=== PATIENT | female | born 1990 | race Caucasian/White ===

== ENCOUNTER 2018-01-22 10:37 | Emergency (ER) | payer SELFPAY ==
[2018-01-22 10:38] VITALS: BP 127/69; PULSE 94; RESP 14; TEMP 36.6; O2SAT 99; BMI 21.6
--- NOTE | 2018-01-22 10:48 | US_ITS ---
STUDY: FIRST TRIMESTER OBSTETRICAL ULTRASOUND REASON FOR EXAM: Female, 27 years old. Bleeding. LMP: November 18, 2017. TECHNIQUE: Transabdominal and Transvaginal TECHNICAL QUALITY: Adequate. PRIOR ULTRASOUND: None. FINDINGS: There is visualization of a single gestational sac in a normal intrauterine position. The mean sac diameter (MSD) measures 4.09 cm, indicating an estimated gestational age (EGA) of 9 weeks, 5 days. The gestational sac shape is within normal limits. There is a visualized yolk sac. The yolk sac measures 4.9 mm. The placenta is non-visualized. Small subchorionic hematoma measuring 2.1 cm x 2.1 sinus by 1.2 cm. There is visualization of a live embryo. The crown-rump length (CRL) measures 2.88 cm, indicating an estimated gestational age (EGA) of 9 weeks, 6 days. There is demonstrated cardiac activity with a heart rate of 149 bpm. The estimated gestation age (EGA) by LMP is 9 weeks, 2 days. The estimated date of delivery (JOHNNY) by LMP is August 25, 2018. The estimated gestation age (EGA) by US is 9 weeks, 6 days. The estimated date of delivery (JOHNNY) by US is August 21, 2018. The uterus measures 10.4 cm x 6.7 cm x 5.6 cm. There is no demonstrated uterine fibroid. The cervix is closed. The right ovary measures 2.4 cm x 1.9 cm x 1.4 cm. There is no right ovarian cyst. There is no visualized right adnexal mass or complex lesion. The left ovary measures 4.1 cm x 3.8 cm x 2.2 cm.. There is a 2.3 cm x 2.2 cm x 2.2 cm cyst. There is no visualized left adnexal mass or complex lesion. There is no fluid in the cul de sac. US/Transvaginal w/Preg US IMPRESSION: Single live intrauterine gestation with a mean gestational age of 9 weeks and 6 days. Small subchorionic hematoma. Left ovarian cyst. Electronically Signed: Hardik Klein MD at 13:03 EDT Tel [phone], Service support ,
--- NOTE | 2018-01-22 10:49 | ED.VISSUMM ---
- ER Visit Summary Date of Service: 01/22/18 Chief Complaint: Vaginal bleeding History of Present Illness: The patient is a 27 F who presents with vaginal bleeding. This started last night. She states that similar to spotting. She denies any pelvic pain but has had some backache. She is at approximately 9-10 weeks. [place] from [place] of town and has had an [facility] appointment in her hometown. She called them today and they recommended she come for an ultrasound. Physical Examination: Vital signs are reviewed. HEENT exam unremarkable. Heart is regular rate and rhythm without murmurs. Lungs are clear to auscultation. Abdomen soft with mild lower tenderness. exam is deferred per patient. Neurologic exam normal. Test Results: HCG quantitative 96,651. Ultrasound reveals a single IUP at 9 weeks 6 days. There is a left ovarian cyst. She has a small subchorionic hemorrhage. Emergency Department Course and Treatment: Patient states her bleeding is improved. She was reassured of the findings. She does have a small subchorionic hemorrhage. Patient will follow up with her OB when she gets back to her hometown. Treatment Plan: [] Disposition: Discharge Impression: Threatened , subchorionic hemorrhage This note was generated with [employer] dictation software. It may contain incorrect words, spelling, and punctuation that were not noted in review of the chart prior to signing ED Disposition - Plan for ED Patient: Chief Complaint: Vag Bld, Preg
--- NOTE | 2018-01-22 13:27 | ED.DEP ---
ED Disposition - Plan for ED Patient: Disposition: Home or Assisted Living Chief Complaint: Vag Bld, Preg Instructions: ED Miscarriage Poss Referrals: Care Physician,No Primary [Primary Care Provider] -
[2018-01-22 13:38] VITALS: BP 106/23; PULSE 91; RESP 17; O2SAT 99
== END 2018-01-22 13:39 | disposition home or self-care (01) ==
PROVIDERS: Emergency Provider Emergency Medicine
DX: O20.0 Threatened abortion (principal); Z3A.09 9 weeks gestation of pregnancy
CPT/HCPCS: 76817; 84702; 99282